=== PATIENT | male | born 1980 | race Caucasian/White ===

== ENCOUNTER 2025-03-05 06:24 | Day surgery (SDC) | payer OTHER, SELFPAY ==
[2025-03-05 07:45] LABS: Glucose - Point of Care 155 mg/dl (70-99)
== END 2025-03-05 10:37 | disposition home or self-care (01) ==
LOC: GI 06:24
PROVIDERS: ATTENDING PHYSICIAN Internal Medicine Gastroenterology
DX: K50.10 Crohn's disease of large intestine without complications (principal); K63.5 Polyp of colon; K64.9 Unspecified hemorrhoids; K62.89 Other specified diseases of anus and rectum; K62.1 Rectal polyp
CPT/HCPCS: 45385; 45381; 45380; 82962; 88305